=== PATIENT | female | born 1990 | race Caucasian/White ===

== ENCOUNTER → 2024-01-12 07:09 | Outpatient (REF) | payer BC, SELFPAY | LOC: PNTC 07:09 | PROVIDERS: ATTENDING PHYSICIAN Advanced Practice Midwife | DX: Z36.0 Encounter for antenatal screening for chromosomal anomalies (principal); Z36.82 Encounter for antenatal screening for nuchal translucency | CPT/HCPCS: 76801; 76813 ==

== ENCOUNTER → 2024-02-03 07:10 | Outpatient (REF) | payer BC, SELFPAY | LOC: PNTC 07:10 | PROVIDERS: ATTENDING PHYSICIAN Advanced Practice Midwife | DX: O99.210 Obesity complicating pregnancy, unspecified trimester (principal) | CPT/HCPCS: 76805 ==

== ENCOUNTER → 2024-03-01 07:09 | Outpatient (REF) | payer BC, SELFPAY | LOC: PNTC 07:09 | PROVIDERS: ATTENDING PHYSICIAN Advanced Practice Midwife | DX: O99.210 Obesity complicating pregnancy, unspecified trimester (principal) | CPT/HCPCS: 76811 ==

== ENCOUNTER → 2024-04-26 07:07 | Outpatient (REF) | payer BC, SELFPAY ==
[2024-04-26 11:03] LABS: % Basophils 0.1 % (0-2); % Eosinophils 0.9 % (0-6); % Immature Granulocytes 0.5 % (0-0.5); % Lymphocytes 26.4 % (20.5-51.1); % Monocytes 5.4 % (1.7-9.3); % Neutrophils 66.7 % (42.2-75.2); Absolute Eosinophils 0.1 10^3/uL (0-0.7); Absolute Lymphocytes 2.3 10^3/uL (1.2-3.4); Absolute Monocytes 0.5 10^3/uL (0.1-0.6); Absolute Neutrophils 5.8 10^3/uL (1.4-6.5); Hematocrit 36.7 % (37.0-47.0); Hemoglobin 12.6 g/dL (12.0-16.0); Mean Corp Hgb Conc. 34.3 g/dL (33.0-37.0); Mean Corpuscular Hgb 29.8 pg (27.0-31.0); Mean Corpuscular Volume 86.8 fL (81.0-99.0); Mean Platelet Volume 11.5 fL (7.4-10.4); Nucleated Red Blood Cells % 0 %; Platelet Count 216 10^3/uL (130-400); Red Blood Cell Count 4.23 10^6/uL (4.20-5.40); Red Cell Dist. Width 13.4 % (11.5-14.5); White Blood Cell Count 8.7 10^3/uL (4.8-10.8)
[2024-04-26 11:24] LABS: 1 Hour after 50gm 126 mg/dl
[2024-04-27 12:21] LABS: Syphilis/T. pallidum Ab Reflex Negative (Negative)
== END ==
LOC: PNTC 07:07
PROVIDERS: ATTENDING PHYSICIAN Advanced Practice Midwife
DX: O99.210 Obesity complicating pregnancy, unspecified trimester (principal)
CPT/HCPCS: 36415; 76816; 82950; 85025; 86780

== ENCOUNTER → 2024-06-24 08:54 | Outpatient (REF) | payer BC, SELFPAY | LOC: PNTC 08:54 | PROVIDERS: ATTENDING PHYSICIAN Advanced Practice Midwife | DX: O99.213 Obesity complicating pregnancy, third trimester (principal) | CPT/HCPCS: 76816 ==

== ENCOUNTER 2024-07-13 16:58 | Inpatient (IN) | payer BC, SELFPAY ==
[2024-07-13 17:11] VITALS: BP 147/89
[2024-07-13 17:50] LABS: % Basophils 0.1 % (0-2); % Eosinophils 0.4 % (0-6); % Immature Granulocytes 0.4 % (0-0.5); % Monocytes 5.5 % (1.7-9.3); % Neutrophils 65.6 % (42.2-75.2); Absolute Lymphocytes 2.3 10^3/uL (1.2-3.4); Absolute Monocytes 0.5 10^3/uL (0.1-0.6); Absolute Neutrophils 5.4 10^3/uL (1.4-6.5); Hematocrit 34.9 % (37.0-47.0); Mean Corp Hgb Conc. 34.4 g/dL (33.0-37.0); Mean Corpuscular Hgb 28.6 pg (27.0-31.0); Mean Corpuscular Volume 83.1 fL (81.0-99.0); Mean Platelet Volume 11.8 fL (7.4-10.4); Nucleated Red Blood Cells % 0 %; Platelet Count 248 10^3/uL (130-400); Red Cell Dist. Width 14.6 % (11.5-14.5); White Blood Cell Count 8.2 10^3/uL (4.8-10.8)
[2024-07-13] MEDS: CLEOCIN 50 IV (18:01)
[2024-07-13] MEDS: LR 1000 IV (18:02)
[2024-07-13] MEDS: PITOCIN 10 UNITS IM (22:34)
[2024-07-13] MEDS: XYLOCAINE-MPF 1% VIAL 30 ML INFIL (22:38)
[2024-07-13] MEDS: STADOL 1 MG IM (23:00)
[2024-07-14] MEDS: MOTRIN 600 MG PO ×4 (00:20→20:16)
[2024-07-14] MEDS: TYLENOL 650 MG PO ×3 (05:15→20:16)
[2024-07-14] MEDS: SENOKOT-S 1 TABLET PO (07:49)
[2024-07-15] MEDS: TYLENOL 650 MG PO ×2 (02:14→08:13)
[2024-07-15] MEDS: MOTRIN 600 MG PO ×2 (02:15→08:12)
[2024-07-15] MEDS: SENOKOT-S 1 TABLET PO (08:12)
== END 2024-07-15 17:24 | disposition home or self-care (01) | DRG 807 ==
LOC: LDRP 16:58
PROVIDERS: ADMITTING PHYSICIAN Advanced Practice Midwife
PROC: 0KQM0ZZ Repair Perineum Muscle, Open Approach (ICD-10-PCS; 2024-07-15)
PROC: 10E0XZZ Delivery of Products of Conception, External Approach (ICD-10-PCS; 2024-07-15)
DX: O99.824 Streptococcus B carrier state complicating childbirth (principal); Z37.0 Single live birth; Z3A.39 39 weeks gestation of pregnancy; O70.1 Second degree perineal laceration during delivery
CPT/HCPCS: 85025; 86850; 86900; 86901